=== PATIENT | male | born 1985 | race Two or more races ===

== ENCOUNTER 2024-04-20 02:54 | Emergency (ER) | payer BC, OTHER ==
[~2024-04-20] VITALS: Ht 167.6 cm; Wt 109.0 kg
[2024-04-20] MEDS: cloNIDine HCL 0.1 MG TAB PO ONE (03:19)
[2024-04-20 04:23] VITALS: PULSE 71; RESP 18; TEMP 97.7; O2SAT 97
--- NOTE | 2024-04-20 05:04 | ED.PDOC ---
HPI (NEURO) HPI Comments PT C/O LEFT SIDED HEADACHE STARTING LAST NIGHT AROUND 9 PM. PT STATES IT WOKE HIM UP AT 2 AM, PT TOOK EXCEDRIN, WITHOUT RELIEF. CURRENT BP 169/87, PT DOES NOT TAKE ANY MEDICATIONS. PT STATES HEADACHE HAS NOT IMPROVED SIGNIFICANTLY RATES PAIN 1/10 AT THIS TIME. DENIES NUMBNESS, WEAKNESS, SLURRED SPEECH, DIFFICULTY BREATHING, CHEST PAIN, SHORTNESS OF BREATH, VISION CHANGES, DIZZINESS, NAUSEA OR VOMITING. Chief Complaint: Headache Time Seen by MD: 03:05 Reviewed Notes: Nurses Notes, Medications, Allergies Information Source: Patient Mode of Arrival: Ambulatory Past Medical History PAST MEDICAL HISTORY: Denies Surgical History: Denies all surgeries Family History Family History: Reviewed,noncontributory to illness Social History Smoker: Non-Smoker Alcohol: Denies ETOH Use Drugs: Denies Drug Use Constitutional: denies: chills, diaphoresis, fatigue, fever, malaise, sweats, weakness, others EENTM: denies: blurred vision, double vision, ear bleeding, ear discharge, ear drainage, ear pain, ear ringing, eye pain, eye redness, hearing loss, mouth pain, mouth swelling, nasal discharge, nose bleeding, nose congestion, nose pain, photophobia, tearing, throat pain, throat swelling, voice changes, others Respiratory: denies: cough, hemoptysis, orthopnea, SOB at rest, shortness of breath, SOB with excertion, stridor, wheezing, others Cardiovascular: denies: chest pain, dizzy spells, diaphoresis, Dyspnea on exertion, edema, irregular heart beat, left arm pain, lightheadedness, palpitations, PND, syncope, others Gastrointestinal: denies: abdomen distended, abdominal pain, blood streaked bowels, constipated, diarrhea, dysphagia, difficulty swallowing, hematemesis, melena, nausea, poor appetite, poor fluid intake, rectal bleeding, rectal pain, vomiting, others Genitourinary: denies: burning, dysuria, flank pain, frequency, hematuria, incontinence, penile discharge, penile sore, pain, testicle pain, testicle swelling, urgency, others Neurological: reports: headache; denies: dizziness, fainting, left sided numbness, left sided weakness, numbness, paresthesia, pre-existing deficit, right sided numbness, right sided weakness, seizure, speech problems, tingling, tremors, weakness, others Musculoskeletal: denies: back pain, gout, joint pain, joint swelling, muscle pain, muscle stiffness, neck pain, others Integumetry: denies: bruises, change in color, change in hair/nails, dryness, laceration, lesions, lumps, rash, wounds, others Allergic/Immunocompromised: denies: Difficulty Healing, Frequent Infections, Hives, Itching, others Hematologic/Lymphatic: denies: anemia, blood clots, easy bleeding, easy bruising, swollen glands, others Endocrine: denies: excessive hunger, excessive sweating, excessive thirst, excessive urination, flushing, intolerance to cold, intolerance to heat, unexplained weight gain, unexplained weight loss, others Psychiatric: denies: anxiety, bipolar disorder, depression, hopeless, panic disorder, schizophrenia, sleepless, suicidal, others Physical Exam General Appearance: No Apparent Distress, Normal HEENT: Normal ENT Inspection, Pharynx Normal, TMs Normal Neck: Full Range of Motion, Non-Tender Respiratory: Lungs Clear, No Respiratory Distress, Normal Breath Sounds Cardiovascular: No Edema, No JVD, No Murmur, No Gallop, Normal Peripheral Pulses, Regular Rate/Rhythm Breast Exam: Deferred Gastrointestinal: No Organomegaly, Non Tender, No Pulsatile Mass, Normal Bowel Sounds, Soft Genitalia: Deferred Pelvic: Deferred Rectal: Deferred Extremities: Normal capillary refill, Normal inspection, Normal range of motion, Non-tender, No pedal edema Musculoskeletal : Apperance: Normal Neurologic: Alert, java lead developer II-XII nml as Tested, No Motor Deficits, Normal Affect, Normal Mood, No Sensory Deficits Cerebellar Function: Normal Reflexes: Normal Skin: Dry, Normal Color, Warm Lymphatic: No Adenopathy Was a procedure done? Was a procedure done?: No Differential Diagnosis (SZ) Seizure: N/A General Weakness: N/A Headache: Cluster, Migraine X-Ray, Labs, Meds, VS Vital Signs Date Time Temp Pulse Resp B/P (MAP) Pulse Ox O2 Delivery O2 Flow Rate FiO2 04/20/24 05:09 162/90 (114) 04/20/24 04:23 151/106 04/20/24 04:23 97.7 91 18 151/106 (121) 97 97.7 04/20/24 04:23 71 18 97 Room Air 04/20/24 03:19 169/87 04/20/24 03:10 97.7 68 18 169/87 (114) 96 X-Ray, Labs, Meds, VS Comment PATIENT STATES HEADACHE HAS RESOLVED REQUESTING DISCHARGE AT THIS TIME. SCRIPT LOSARTAN 25 MG ONCE DAILY ADVISED PATIENT TO KEEP A BLOOD PRESSURE JOURNAL AND FOLLOW UP WITH HIS PCP IN 1-2 DAYS. ADVISED TO REST INCREASE P.O. FLUIDS WITH ELECTROLYTES, TAKE MEDICATIONS PRESCRIBED SIDE EFFECTS DISCUSSED. ADVISED ON ER RETURN PRECAUTIONS PATIENT INDICATED UNDERSTANDING AND AGREES WITH DISCHARGE PLAN OF CARE. Time of 1ST Reevaluation: 05:02 Reevaluation 1ST: Improved Patient Education/Counseling: Diagnosis, Treatment, Prognosis, Need For Follow Up Family Education/Counseling: No Family Present Departure 1 Departure Time of Disposition: 05:02 Impression: Primary Impression: Headache Qualified Codes: G44.201 - Tension-type headache, unspecified, intractable Additional Impression: Elevated blood pressure reading Disposition: 01 HOME / SELF CARE / HOMELESS Condition: Stable e-Prescriptions Losartan Potassium (Losartan Potassium) 25 Mg Tab 1 TAB PO DAILY for 14 Days, #14 TAB Prov: CALEB BAPTISTE 04/20/24 Discharged With: Self Critical Care Note Critical Care Time?: No Stability Stability form required: No CALEB BAPTISTE Apr 20, 2024 05:04
[2024-04-20 05:09] VITALS: BP 162/90
[2024-04-20] MEDS ORDERED: LOSA-533 PO (05:11)
== END 2024-04-20 05:14 | disposition home or self-care (01) ==
LOC: ER 02:54
DX: R51.9 Headache, unspecified (principal); R03.0 Elevated blood-pressure reading, without diagnosis of hypertension

== ENCOUNTER → 2024-05-01 | Outpatient (CLI) | payer BC ==
[~2024-05-01] MED LIST: LOSA-533 PO
[2024-05-01 10:01] LABS: Urine Bacteria None Seen /hpf (None Seen)
[2024-05-01 10:20] LABS: Basophils # (auto) 0.1 10 ^3/uL (0-0.2); Basophils % (auto) 0.8 % (0.0-2.0); Eosinophils # (auto) 0.3 10 ^3/uL (0-0.8); Eosinophils % (auto) 4.6 % (0.0-7.0); Hematocrit 42.4 % (41.0-53.0); Hemoglobin 14.5 g/dL (13.5-17.5); Lymphocytes # (auto) 2.3 10 ^3/uL (0.4-5.4); Mean Corpuscular Hemoglobin 29.5 pg (28.0-32.0); Mean Corpuscular Hgb Conc. 34.1 g/dL (32.0-36.0); Mean Corpuscular Volume 86.3 fL (80.0-100.0); Monocytes # (auto) 0.6 10 ^3/uL (0-1.3); Monocytes % (auto) 8.2 % (0.0-12.0); Neutrophils # (auto) 4.1 10 ^3/uL (1.6-8.6); Neutrophils % (auto) 55.4 % (37.0-80.0); Nucleated Red Blood Cells % 0.1 %; Platelet Count (auto) 354 10^3/uL (140-450); Red Blood Cells 4.91 10^6/uL (4.5-5.90); Red Cell Distribution Width 13.7 % (11.8-14.3); White Blood Cell 7.3 10^3/uL (4.4-10.8)
[2024-05-01 10:30] LABS: Urine Blood Negative /uL (Negative); Urine Clarity Clear (Clear); Urine Color Light-Yellow (Yellow); Urine Mucus FEW (None Seen); Urine Protein, UAD Negative (Negative); Urine Specific Gravity 1.021 (1.001-1.035); Urine Squamous Epithelial Cell None Seen /hpf (<5); Urine Urobilinogen Normal (Negative); Urine WBC < 1 /HPF (0-3)
[2024-05-01 10:36] LABS: Albumin 4.8 g/dL (3.2-4.8); Alkaline Phosphatase 65 U/L (46-116); Anion Gap 6 (5-15); Aspartate Aminotransferase 34 U/L (13-40); BUN/Creatinine Ratio 13.1 (10.0-20.0); Blood Urea Nitrogen 11 mg/dL (9-23); Calcium 9.8 mg/dL (8.7-10.4); Carbon Dioxide 29 mmol/L (20-31); Chloride 105 mmol/L (98-107); Glucose 95 mg/dL (74-106); Potassium 4.4 mmol/L (3.5-5.1); Sodium 140 mmol/L (136-145); Total Protein 7.7 g/dL (5.7-8.2); Triglycerides 119 mg/dL (< 150)
[2024-05-01 10:37] LABS: Bilirubin, Total 0.6 mg/dL (0.2-1.0); Cholesterol 170 mg/dL (< 200); HDL Cholesterol 46 mg/dL (40-59)
[2024-05-01 10:39] LABS: Alanine Aminotransferase 66 U/L (7-40); LDL Cholesterol 104 mg/dL (< 100)
== END | disposition home or self-care (01) ==
LOC: LAB 09:44
PROVIDERS: ATTEND Internal Medicine
DX: I10 Essential (primary) hypertension (principal); E29.1 Testicular hypofunction; G44.1 Vascular headache, not elsewhere classified; R68.82 Decreased libido; E66.01 Morbid (severe) obesity due to excess calories
CPT/HCPCS: 36415; 80053; 80061; 81001; 83036; 84403; 84443; 85025